=== PATIENT | female | born 1955 | race Caucasian/White ===

== ENCOUNTER → 2020-05-05 12:27 | Outpatient (CLI) | payer MEDICARE, SELFPAY ==
--- NOTE | ~2020-05-05 | MM_ITS ---
EXAMINATION: MM screening [place] BI w shelli HISTORY: Screening TECHNIQUE: Craniocaudal and mediolateral oblique 3-D tomosynthesis images were obtained and synthetic 2-D images were generated. CAD analysis was submitted and interpreted. COMPARISON: Comparison to multiple prior studies sequentially, with oldest reviewed study dated 12/05. BREAST PARENCHYMAL COMPOSITION: There are scattered areas of fibroglandular density. FINDINGS: There is no evidence of suspicious mass, calcification, or architectural distortion to sugg est malignancy in either breast. There has been no suspicious interval change. IMPRESSION: 1. No mammographic evidence of malignancy. 2. Recommend routine screening mammography in one year. BI-RADS Category 1: Negative Reviewed, dictated and finalized at location A. ICE PATIENT CARE SECRETARY
--- NOTE | ~2020-05-05 | DEXA_ITS ---
Bone Density Report Name: Tennille Castillo Age: 65 Sex: Female Ethnicity: White Date of : 1955 Indication: osteopenia; asthma or emphysema; postmenopausal Referring Provider: Lisa, Rizwana Study: Bone densitometry was performed. Exam Date: May 05, 2020 Accession number: [id number] Bone Density: Region BMD T-score Z-score Classification AP Spine (L1-L4) 0.952 -0.9 1.0 Normal Femoral Neck (Left) 0.615 -2.1 -0.5 Osteopenia Total Hip (Left) 0.682 -2.1 -0.8 Osteopenia Femoral Neck (Right) 0.605 -2.2 -0.6 Osteopenia Total Hip (Right) 0.773 -1.4 -0.1 Osteopenia Total Hip Mean 0.728 -1.8 -0.5 Osteopenia World Health Organization criteria for BMD impression classify patients as: Normal (T-score at or above -1.0), Osteopenia (T-score between -1.0 and -2.5), or Osteoporosis (T-score at or below -2.5). 10-year Fracture Risk(1): Major Osteoporotic Fracture 11% Hip Fracture 3.2% Reported Risk Factors: [place] (), Neck BMD=0.605, BMI=22.0, smoking (1) FRAX(R) Version 3.08. Fracture probability calculated for an untreated patient. Fracture probability may be lower if the patient has received treatment. Previous Exams: Region Exam Age BMD T-score BMD Change BMD Change Date g/cm2 vs Baseline vs Previous AP Spine(L1-L4) 05/05/2020 65 0.952 -0.9 -0.038* -0.030* 01/20/2017 61 0.982 -0.6 -0.008 -0.008 12/19/2010 55 0.990 -0.5 Total Hip(Left) 05/05/2020 65 0.682 -2.1 -0.056* -0.058* 01/20/2017 61 0.740 -1.7 0.002 0.002 12/19/2010 55 0.738 -1.7 Total Hip(Right) 05/05/2020 65 0.773 -1.4 -0.019 -0.037* 01/20/2017 61 0.810 -1.1 0.018 0.018 12/19/2010 55 0.792 -1.2 *Denotes significance at 95% confidence level, LSC for AP Spine = 0.022 g/cm2, LSC for Total Hip = 0.027 g/cm2 Clinical Information Provided by Patient: Smokes Has used the following medications: Vitamin D, Calcium Has the following medical conditions: Asthma or Emphysema Patient maximum height was 61.4 Menopause Age: 49 No regular weight bearing exercise Does not regularly consume dairy products Drinks caffeinated beverages Onset of menses at age 14 Number of children 3 Impression: The patient has low bone mass, based on the Right Femoral Neck T-score. The patient has an estimated ten-year risk of hip fracture of 3.2% and an estimat
== END ==
PROVIDERS: PCP Registered Nurse; Visit Provider Registered Nurse
DX: Z12.31 Encounter for screening mammogram for malignant neoplasm of breast (principal); Z78.0 Asymptomatic menopausal state; M85.852 Other specified disorders of bone density and structure, left thigh; M85.851 Other specified disorders of bone density and structure, right thigh
CPT/HCPCS: 77063; 77067; 77080

== ENCOUNTER → 2021-11-15 13:21 | Outpatient (CLI) | payer MEDICARE, SELFPAY ==
--- NOTE | ~2021-11-15 | MM_ITS ---
EXAMINATION: MM screening [place] BI w shelli HISTORY: Screening mammogram TECHNIQUE: Craniocaudal and mediolateral oblique 3-D tomosynthesis images were obtained and synthetic 2-D images were generated. CAD analysis was submitted and interpreted. COMPARISON: 05/05/2020, 03/10/2019, 01/20/2017 bilateral screening mammogram examinations BREAST PARENCHYMAL COMPOSITION: The breasts are heterogeneously dense, which may obscure small masses . FINDINGS: There is no evidence of suspicious mass, calcification, or architectural distortion to sugg est malignancy in either breast. There has been no suspicious interval change. IMPRESSION: 1. No mammographic evidence of malignancy. 2. Recommend routine screening mammography in one year. BI-RADS Category 1: Negative Reviewed, dictated and finalized at location A.
== END ==
PROVIDERS: PCP Registered Nurse; Visit Provider Registered Nurse
DX: Z12.31 Encounter for screening mammogram for malignant neoplasm of breast (principal)
CPT/HCPCS: 77063; 77067

== ENCOUNTER → 2022-10-22 10:37 | Outpatient (CLI) | payer MEDICARE, SELFPAY ==
--- NOTE | ~2022-10-22 | XR_ITS ---
Clinical Indication: Cough PA and lateral views of the chest: Comparison: None Findings: The lungs are clear, without evidence of focal consolidation or pleural effusion. Suspected COPD. Suggestion of prominent upper mediastinal contour on the lateral view. Bones and soft tissues are unremarkable. Impression: Suspected COPD. Suggestion of prominent mediastinal contour on the lateral view at the upper mediastinum. This could reflect cardiomegaly, however aortic aneurysm not completely excluded. Consider CT to further evaluat e, as indicated. Clear lungs. Reviewed, dictated and finalized at location M. Impression: Suspected COPD. Suggestion of prominent mediastinal contour on the lateral view at the upper me diastinum. This could reflect cardiomegaly, however aortic aneurysm not complet migue excluded. Consider CT to further evaluate, as indicated. Clear lungs.
== END ==
PROVIDERS: PCP Registered Nurse; Visit Provider Registered Nurse
DX: R05.1 Acute cough (principal)
CPT/HCPCS: 71046

== ENCOUNTER → 2023-04-01 10:37 | Outpatient (CLI) | payer MEDICARE, SELFPAY ==
--- NOTE | ~2023-04-01 | MM_ITS ---
EXAMINATION: MM screening [place] BI w shelli HISTORY: Screening TECHNIQUE: Craniocaudal and mediolateral oblique 3-D tomosynthesis images were obtained and synthetic 2-D images were generated. CAD analysis was submitted and interpreted. COMPARISON: Comparison to multiple prior studies sequentially, with oldest reviewed study dated 09/2013. BREAST PARENCHYMAL COMPOSITION: Breast composed of scattered areas of fibroglandular density FINDINGS: There is developing asymmetry superiorly in the right breast on MLO view. The left breast i s stable without evidence for malignancy. IMPRESSION: 1. . Right breast asymmetry. 2. Additional mammographic views and possible breast ultrasound are recommended. BI-RADS Category 0: Incomplete: Needs additional imaging evaluation. Reviewed, dictated and finalized at location A. T WORKER IMPRESSION: 1. . Right breast asymmetry. 2. Additional mammographic views and possible breast ultrasound are recommended . BI-RADS Category 0: Incomplete: Needs additional imaging evaluation.
== END ==
PROVIDERS: PCP Registered Nurse; Visit Provider Registered Nurse
DX: Z12.31 Encounter for screening mammogram for malignant neoplasm of breast (principal); R92.8 Other abnormal and inconclusive findings on diagnostic imaging of breast
CPT/HCPCS: 77063; 77067

== ENCOUNTER → 2023-05-13 07:59 | Outpatient (CLI) | payer MEDICARE, SELFPAY ==
--- NOTE | ~2023-05-13 | MMUS_ITS ---
EXAMINATION: MM diagnostic [place] RT w shelli, US breast RT limited HISTORY: Right breast mammographic asymmetry reported on 04/01/2023 screening mammogram TECHNIQUE: Additional 3-D tomosynthesis images of the right breast were performed and synthetic 2-D i mages were generated. CAD analysis was submitted and interpreted. High resolution upper outer and upp er inner quadrant right breast ultrasound was performed. COMPARISON: 04/01/2022, 11/15/2021, 05/05/2020 bilateral screening mammogram examinations FINDINGS: MAMMOGRAPHIC FINDINGS: There is stable nodular prominence along the upper anterior fibroglandular margin on ML and MLO views , present since 05/05/2020. No interval suspicious mass or architectural distortion, malignant calcification, skin thickening or retraction is evident. ULTRASOUND: Real-time imaging of the upper inner and upper outer quadrants of the right breast reveals no suspici ous mass or shadowing or other significant sonographic abnormality. IMPRESSION: 1. No evidence of malignancy 2. Routine annual mammographic screening is recommended BI-RADS Category 1: Negative Reviewed, dictated and finalized at location A. ER ENAMELING IMPRESSION: 1. No evidence of malignancy 2. Routine annual mammographic screening is recommended BI-RADS Category 1: Negative
== END ==
PROVIDERS: PCP Registered Nurse; Visit Provider Registered Nurse
DX: R92.8 Other abnormal and inconclusive findings on diagnostic imaging of breast (principal)
CPT/HCPCS: 76642; 77061; 77065; G0279

== ENCOUNTER 2024-11-30 07:10 | Outpatient (CLI) | payer MEDICARE, SELFPAY ==
--- NOTE | ~2024-11-30 | MM_ITS ---
EXAMINATION: MM screening [place] BI w shelli HISTORY: Screening TECHNIQUE: Craniocaudal and mediolateral oblique 3-D tomosynthesis images were obtained and synthetic 2-D images were generated. CAD analysis was submitted and interpreted. COMPARISON: Comparison to multiple prior studies sequentially, with oldest reviewed study dated 01/20. BREAST PARENCHYMAL COMPOSITION: Not dense: There are scattered areas of fibroglandular density. FINDINGS: There is no evidence of suspicious mass, calcification, or architectural distortion to sugg est malignancy in either breast. There has been no suspicious interval change. IMPRESSION: 1. No mammographic evidence of malignancy. 2. Recommend routine screening mammography in one year. BI-RADS Category 1: Negative Reviewed, dictated and finalized at location A.
== END 2024-11-30 07:11 | disposition home or self-care (01) ==
LOC: MICIMG 07:11
PROVIDERS: PCP Registered Nurse; Visit Provider Registered Nurse
DX: Z12.31 Encounter for screening mammogram for malignant neoplasm of breast (principal)
CPT/HCPCS: 77063; 77067